=== PATIENT | female | born 2005 | race Caucasian/White ===

== ENCOUNTER 2023-10-28 08:38 | Outpatient (REF) | payer OTHER, SELFPAY ==
--- NOTE | ~2023-10-28 | US_ITS ---
EXAMINATION: US PELVIS CLINICAL INFORMATION: Abnormal vaginal bleeding, IUD check. Irregular menstrual periods. COMPARISON: None available. TECHNIQUE: Ultrasound of the pelvis is performed using both transabdominal and transvaginal transducers along with Doppler. Transvaginal imaging is performed due to inadequate visualization transabdominally. FINDINGS: Retroverted and retroflexed uterus measuring 7 x 4 x 5 cm. No uterine mass. IUD in satisfactory positioning within the endometrial canal, the endometrium measures approximately up to 0.7 cm in thickness. Right ovary measures 2.9 x 1.5 x 2.4 cm, 5.5 mL. Left ovary measures 3.6 x 1.8 x 1.8 cm, 6.2 mL. There is preserved flow to both ovaries at the moment of this examination. There is a 2.1 x 1.8 x 2 cm involuting corpus luteal cyst in the left ovary, for which no imaging follow-up is recommended. There is a 2.8 x 2.8 x 2.7 cm exophytic right ovarian cyst versus right adnexal cyst with layering debris and trace amount of surrounding free fluid. Small amount of free fluid around the right adnexa and in the cul-de-sac. US/US pelvic and transvaginal IMPRESSION: 1. IUD in satisfactory positioning within the endometrial canal. 2. There is a 2.8 cm exophytic right ovarian cyst versus right adnexal cyst with layering debris and trace amount of surrounding free fluid that could represent a hemorrhagic cyst, recommend follow-up ultrasound in 6-8 weeks. If an acute ovarian pathology related to torsion/detorsion is clinically suspected then shorter follow-up ultrasound or correlation with pelvic MRI is recommended.
== END 2023-10-28 08:39 | disposition home or self-care (01) ==
LOC: HO.UMASIMG 08:38
PROVIDERS: Visit Provider Family Medicine
DX: N93.9 Abnormal uterine and vaginal bleeding, unspecified (principal)
CPT/HCPCS: 76830; 76856